=== PATIENT | male | born 1965 | race Caucasian/White ===

== ENCOUNTER → 2016-12-01 | Outpatient (CLI) | payer OTHER ==
[~2016-12-01] VITALS: Ht 180.3 cm; Wt 70.2 kg
[~2016-12-01] MED LIST: CYCLOBENZAPRINE10 MG PO; DELTASONE10 MG PO; EFFEXOR XR150 MG PO; ERYTHROMYCIN O3.5 GM LEFT EYE; FLEXERIL10 MG PO; KEFLEX500 MG PO; MOBIC15 MG PO; MOTRIN600 MG PO; MOTRIN800 MG PO; NAPROSYN500 MG PO; NAPROXEN500 MG PO; NOHOMEMEDS; PERCOCET 5/31 TABLET PO; PRILOSEC40 MG PO; PriLOSEC PO; ZANTAC150 MG PO; ZOFRAN ODT8 MG PO
== END | disposition home or self-care (01) ==
LOC: AMB 08:54
PROC: 0DB68ZX Excision of Stomach, Via Natural or Artificial Opening Endoscopic, Diagnostic (ICD-10-PCS; principal; 2016-12-01)
DX: K29.70 Gastritis, unspecified, without bleeding (principal); R10.13 Epigastric pain; R11.2 Nausea with vomiting, unspecified; R63.4 Abnormal weight loss; K21.9 Gastro-esophageal reflux disease without esophagitis; Z80.0 Family history of malignant neoplasm of digestive organs; F17.200 Nicotine dependence, unspecified, uncomplicated
CPT/HCPCS: 88305; 88342 TC; B4087; J2250

== ENCOUNTER → 2016-12-14 | Outpatient (CLI) | payer OTHER | END | disposition home or self-care (01) | LOC: NUC 07:14 | DX: R10.13 Epigastric pain (principal); R94.8 Abnormal results of function studies of other organs and systems | CPT/HCPCS: 78264; A9541 ==

== ENCOUNTER 2017-05-28 09:48 | Emergency (ER) | payer OTHER ==
[~2017-05-28] VITALS: Ht 180.3 cm; Wt 74.3 kg
[2017-05-28 11:45] LABS: HEMATOCRIT 44.9 % (38.0-50.0); MCH 30.2 PG (29.0-34.0); MCHC 35.4 G/DL (30.0-36.0); MCV 85.2 FL (86-99); MEAN PLAT.VOLUME 9.7 uM^3 (9.0-12.4); PLATELET COUNT 222 K/uL (156-360); RBC DIS.WIDTH-CV 12.5 % (11.8-14.6); RBC DIS.WIDTH-SD 38.8 % (39-53); RED BLOOD COUNT 5.27 M/uL (4.00-5.50); WHITE BLOOD COUNT 7.5 K/uL (4.1-10.2)
[2017-05-28 11:53] LABS: CHLORIDE 102 mEq/L (99-109); POTASSIUM 3.9 mEq/L (3.7-5.4); SODIUM 138 mEq/L (136-147)
[2017-05-28 11:55] LABS: GLUCOSE 106 mg/dL (70-99)
[2017-05-28 11:56] LABS: ANION GAP 13 MEQ/L (2-14)
[2017-05-28 11:57] LABS: TOTAL BILIRUBIN 0.7 mg/dL (0.0-1.0)
[2017-05-28 11:59] LABS: ADD MIUA? YES; ALKALINE PHOSPHATASE 54 IU/L (3-129); BILIRUBIN NEGATIVE; BLOOD SMALL; COLOR YELLOW ((YELLOW)); GFR ESTIMATE (CALCULATED) > 59 mL/min/; GLUCOSE (STRIP) NEGATIVE; KETONES NEGATIVE; LEUKOCYTES NEGATIVE; NITRITE NEGATIVE; PROTEIN (STRIP) NEGATIVE; SPECIFIC GRAVITY 1.005 (1.000-1.030); UROBILINOGEN 0.2 MG/DL (0.2-1.0)
[2017-05-28 12:00] LABS: UREA NITROGEN (BUN) 8 mg/dL (9-23)
[2017-05-28 12:04] LABS: BACTERIA NONE SEEN /HPF; EPITHELIAL CELLS RARE /HPF; MUCUS TRACE /LPF; RED BLOOD CELLS 0-5 /HPF (0-5); WHITE BLOOD CELLS 0-5 /HPF (0-5)
[2017-05-28] MEDS ORDERED: LIDODERM 5% P1 PATCH TD (14:15)
[2017-05-28] MEDS ORDERED: NORCO 5/3251 TABLET PO (14:15)
[2017-05-28 14:17] VITALS: BP 158/91
== END 2017-05-28 14:25 | disposition home or self-care (01) ==
LOC: EME 09:48
PROVIDERS: Nurse Practitioner Family
DX: M54.5 Low back pain (principal); R20.2 Paresthesia of skin; S40.029A Contusion of unspecified upper arm, initial encounter; R31.9 Hematuria, unspecified; W19.XXXA Unspecified fall, initial encounter; K21.9 Gastro-esophageal reflux disease without esophagitis; Z86.73 Personal history of transient ischemic attack (TIA), and cerebral infarction without residual deficits; F17.200 Nicotine dependence, unspecified, uncomplicated
CPT/HCPCS: 70450; 72100; 73080; 80053; 81003; 85027; 99281; 99284

== ENCOUNTER 2017-06-17 05:05 | Emergency (ER) | payer OTHER ==
[~2017-06-17] VITALS: Ht 180.3 cm; Wt 76.3 kg
[~2017-06-17 05:05] MED LIST changes: +LIDODERM 5% P1 PATCH TD; +NORCO 5/3251 TABLET PO
[2017-06-17 06:49] LABS: EOSINOPHIL (%) 2.5 % (0-5); EOSINOPHIL COUNT 0.1 K/uL (0-0.3); HEMATOCRIT 38.3 % (38.0-50.0); IMMATURE GRANULOCYTE (%) 0.4 % (0.0-0.7); INSTRUMENT ABS NEUTROPHIL CT 3.2 K/uL; LYMPHOCYTE COUNT 1.4 K/uL (1.0-2.8); MCH 29.8 PG (29.0-34.0); MCHC 35.2 G/DL (30.0-36.0); MCV 84.5 FL (86-99); MEAN PLAT.VOLUME 10.1 uM^3 (9.0-12.4); MONOCYTE (%) 8.3 % (3-12); MONOCYTE COUNT 0.4 K/uL (0-0.8); NEUTROPHIL (%) 61.5 % (45-76); NEUTROPHIL COUNT 3.2 K/uL (1.8-6.4); PLATELET COUNT 198 K/uL (156-360); RBC DIS.WIDTH-CV 12.1 % (11.8-14.6); RBC DIS.WIDTH-SD 37.1 % (39-53); RED BLOOD COUNT 4.53 M/uL (4.00-5.50); WHITE BLOOD COUNT 5.2 K/uL (4.1-10.2)
[2017-06-17 06:53] LABS: INTER. NORMALIZED RATIO 0.9; PROTHROMBIN TIME 10.2 SEC (10.2-12.9)
[2017-06-17 06:56] LABS: PTT 29.9 SEC (25-37)
[2017-06-17 07:16] LABS: ANION GAP 10 MEQ/L (2-14); CHLORIDE 101 MEQ/L (99-109); CREATINE KINASE 90 IU/L (1-294); GFR ESTIMATE (CALCULATED) > 59 mL/min/; GLUCOSE 85 mg/dL (70-99); SAMPLE HEMOLYSIS CHECK 0; SAMPLE ICTERIC CHECK 0; SAMPLE LIPEMIA CHECK 0; SODIUM 137 MEQ/L (136-147); TOTAL CK 90 IU/L (1-294); UREA NITROGEN (BUN) 8 mg/dL (9-23)
[2017-06-17 07:43] LABS: CK-MB 1.3 ng/mL (0.0-4.9)
[2017-06-17] MEDS ORDERED: PERCOCET 5/31 TABLET PO (10:04)
[2017-06-17] MEDS ORDERED: VALIUM2 MG PO (10:04)
[2017-06-17 10:33] VITALS: BP 130/88
== END 2017-06-17 10:50 | disposition home or self-care (01) ==
LOC: EME → EDBD 05:05 → EME 10:50
PROVIDERS: Emergency Medicine
DX: M79.604 Pain in right leg (principal); R20.2 Paresthesia of skin; G20 Parkinson's disease; Z87.891 Personal history of nicotine dependence
CPT/HCPCS: 73564; 73590; 80048; 82550; 82553; 85025; 85610; 85730; 93971; 99281; 99285; J1100; J1885; J3010; J3360

== ENCOUNTER → 2017-06-20 | Outpatient (CLI) | payer OTHER ==
[~2017-06-20] MED LIST changes: +VALIUM2 MG PO
== END | disposition home or self-care (01) ==
LOC: NUC 08:53
DX: R25.1 Tremor, unspecified (principal); R13.10 Dysphagia, unspecified; R20.0 Anesthesia of skin; R25.9 Unspecified abnormal involuntary movements; R53.1 Weakness
CPT/HCPCS: 78607; A9584

== ENCOUNTER → 2017-07-16 | Outpatient (CLI) | payer OTHER ==
[2017-07-16 16:26] LABS: APPEARANCE CLEAR/COLORLESS; CSF EOSINOPHILS 0 % (0-25); MONONUCLEAR WBC'S 100 % (50-90); POLYNUCLEAR WBC'S 0 % (0-3); RED CELL AREA COUNTED 18; RED CELL COUNT 1 /MM^3 (0-1); RED CELL DILUTION 1; WBC AREA COUNTED 18; WBC DILUTION 1; WHITE CELL COUNT 1 /MM^3 (0-5); WHITE CELL RAW COUNT 2
[2017-07-17 19:14] LABS: Albumin, Serum 4.9 g/dL (3.5-4.9); IgG Index, CSF 0.41 index (<0.66)
== END | disposition home or self-care (01) ==
LOC: RAD 14:42
PROVIDERS: Psychiatry & Neurology Clinical Neurophysiology
PROC: 009U3ZZ Drainage of Spinal Canal, Percutaneous Approach (ICD-10-PCS; principal; 2017-07-16)
DX: R26.9 Unspecified abnormalities of gait and mobility (principal); R25.1 Tremor, unspecified
CPT/HCPCS: 62270; 77003; 82945; 83873 90; 83916 90; 84157; 86617 90; 86618 90; 87070; 87205; 89051

== ENCOUNTER → 2017-07-19 | Outpatient (CLI) | payer OTHER ==
[~2017-07-19] MED LIST changes: +AFRIN,GENASAL D15 ML BOTH NARES; +HYCODAN SYRUP480 ML PO; +PREDNISONE20 MG PO; +ZITHROMAX Z-PA250 MG PO
== END | disposition home or self-care (01) ==
LOC: RAD 11:30 → EDSTATUS 11:30 → RAD 11:40
PROC: 3E0S3GC Introduction of Other Therapeutic Substance into Epidural Space, Percutaneous Approach (ICD-10-PCS; principal; 2017-07-19)
DX: G97.1 Other reaction to spinal and lumbar puncture (principal)
CPT/HCPCS: C1755

== ENCOUNTER 2017-07-24 10:14 | Emergency (ER) | payer OTHER ==
[~2017-07-24] VITALS: Ht 180.3 cm; Wt 82.3 kg
[~2017-07-24 10:14] MED LIST changes: -AFRIN,GENASAL D15 ML BOTH NARES; -HYCODAN SYRUP480 ML PO; +OMEPRAZOLE40 M1 PO; -PREDNISONE20 MG PO; -PRILOSEC40 MG PO; -ZITHROMAX Z-PA250 MG PO
[2017-07-24 11:02] LABS: HEMATOCRIT 40.4 % (38.0-50.0); MCH 29.9 PG (29.0-34.0); MCHC 34.9 G/DL (30.0-36.0); MCV 85.6 FL (86-99); MEAN PLAT.VOLUME 9.8 uM^3 (9.0-12.4); PLATELET COUNT 170 K/uL (156-360); RBC DIS.WIDTH-CV 12.3 % (11.8-14.6); RBC DIS.WIDTH-SD 38.3 % (39-53); RED BLOOD COUNT 4.72 M/uL (4.00-5.50); WHITE BLOOD COUNT 7.6 K/uL (4.1-10.2)
[2017-07-24 11:43] LABS: CHLORIDE 105 mEq/L (99-109); POTASSIUM 3.9 mEq/L (3.7-5.4); SODIUM 141 mEq/L (136-147)
[2017-07-24 11:45] LABS: GLUCOSE 96 mg/dL (70-99)
[2017-07-24 11:47] LABS: ANION GAP 13 MEQ/L (2-14)
[2017-07-24 11:49] LABS: GFR ESTIMATE (CALCULATED) > 59 mL/min/
[2017-07-24 11:50] LABS: UREA NITROGEN (BUN) 6 mg/dL (9-23)
[2017-07-24 12:09] LABS: D-DIMER ELISA < 150.00 ng/mLDDU (<230)
[2017-07-24 12:20] LABS: TROP-I INTERPRETATION NEGATIVE; TROPONIN-I < 0.01 ng/mL (0.0-0.30)
[2017-07-24] MEDS ORDERED: NAPROSYN500 MG PO (12:39)
[2017-07-24] MEDS ORDERED: AFRIN,GENASAL D15 ML BOTH NARES (12:39)
[2017-07-24] MEDS ORDERED: ZITHROMAX Z-PA250 MG PO (12:39)
[2017-07-24] MEDS ORDERED: PREDNISONE20 MG PO (12:39)
[2017-07-24] MEDS ORDERED: HYCODAN SYRUP480 ML PO (12:39)
[2017-07-24 12:55] VITALS: BP 124/86
== END 2017-07-24 12:57 | disposition home or self-care (01) ==
LOC: EME 10:14
PROVIDERS: Physician Assistant
DX: R09.1 Pleurisy (principal); G35 Multiple sclerosis; G89.29 Other chronic pain; Z87.891 Personal history of nicotine dependence
CPT/HCPCS: 71020; 80048; 84484; 85027; 85379; 93005; 94640; 99281; 99283; J1885; J3010; J7512

== ENCOUNTER 2017-07-28 08:04 | Observation (INO) | payer OTHER ==
[~2017-07-28] VITALS: Ht 180.3 cm; Wt 82.7 kg
[~2017-07-28 08:04] MED LIST changes: +AFRIN,GENASAL D15 ML BOTH NARES; +HYCODAN SYRUP480 ML PO; +PREDNISONE20 MG PO; +ZITHROMAX Z-PA250 MG PO
[2017-07-28 09:04] LABS: HEMATOCRIT 38.7 % (38.0-50.0); MCH 29.8 PG (29.0-34.0); MCHC 35.4 G/DL (30.0-36.0); MCV 84.3 FL (86-99); MEAN PLAT.VOLUME 9.7 uM^3 (9.0-12.4); PLATELET COUNT 207 K/uL (156-360); RBC DIS.WIDTH-CV 12.7 % (11.8-14.6); RBC DIS.WIDTH-SD 38.6 % (39-53); RED BLOOD COUNT 4.59 M/uL (4.00-5.50); WHITE BLOOD COUNT 9.9 K/uL (4.1-10.2)
[2017-07-28 09:12] LABS: CHLORIDE 104 mEq/L (99-109); POTASSIUM 3.5 mEq/L (3.7-5.4); SODIUM 141 mEq/L (136-147)
[2017-07-28 09:14] LABS: GLUCOSE 81 mg/dL (70-99)
[2017-07-28 09:16] LABS: ANION GAP 15 MEQ/L (2-14); TOTAL BILIRUBIN 0.3 mg/dL (0.0-1.0)
[2017-07-28 09:18] LABS: ALKALINE PHOSPHATASE 64 IU/L (3-129); GFR ESTIMATE (CALCULATED) > 59 mL/min/
[2017-07-28 09:19] LABS: UREA NITROGEN (BUN) 8 mg/dL (9-23)
[2017-07-28 10:09] LABS: ADD MIUA? NO; BILIRUBIN NEGATIVE; BLOOD NEGATIVE; COLOR STRAW ((YELLOW)); GLUCOSE (STRIP) NEGATIVE; KETONES NEGATIVE; LEUKOCYTES NEGATIVE; NITRITE NEGATIVE; PROTEIN (STRIP) NEGATIVE; SPECIFIC GRAVITY 1.004 (1.000-1.030); UROBILINOGEN 0.2 MG/DL (0.2-1.0)
[2017-07-28 12:09] LABS: UCUL ADDED? NO
[2017-07-28] MEDS ORDERED: NAPROXEN500 MG PO (13:16)
[2017-07-28] MEDS ORDERED: MOBIC15 MG PO (13:17)
[2017-07-28] MEDS ORDERED: BACLOFEN20 MG PO (13:21)
[2017-07-28] MEDS ORDERED: AMLODIPINE BES2.5 MG PO (13:22)
[2017-07-28] MEDS ORDERED: NICODERM CQ1 EACH TD (13:22)
[2017-07-28] MEDS ORDERED: GABAPENTIN300 MG PO (13:23)
[2017-07-28] MEDS ORDERED: CLARITIN10 MG PO (13:23)
[2017-07-28 14:40] VITALS: BP 141/81
[2017-07-28 18:30] VITALS: BP 141/85
[2017-07-29 04:30] VITALS: BP 153/82
[2017-07-29 05:38] LABS: HEMATOCRIT 36.6 % (38.0-50.0); MCH 29.9 PG (29.0-34.0); MCHC 34.7 G/DL (30.0-36.0); MCV 86.1 FL (86-99); MEAN PLAT.VOLUME 9.8 uM^3 (9.0-12.4); PLATELET COUNT 199 K/uL (156-360); RBC DIS.WIDTH-CV 12.7 % (11.8-14.6); RBC DIS.WIDTH-SD 39.6 % (39-53); RED BLOOD COUNT 4.25 M/uL (4.00-5.50)
[2017-07-29 05:54] LABS: ANION GAP 14 MEQ/L (2-14); CHLORIDE 102 MEQ/L (99-109); GFR ESTIMATE (CALCULATED) > 59 mL/min/; SAMPLE HEMOLYSIS CHECK 0; SAMPLE ICTERIC CHECK 0; SAMPLE LIPEMIA CHECK 0; SODIUM 142 MEQ/L (136-147); UREA NITROGEN (BUN) 12 mg/dL (9-23)
[2017-07-29 06:01] LABS: GLUCOSE 116 mg/dL (70-99); POTASSIUM 4.4 MEQ/L (3.7-5.4)
[2017-07-29 09:31] VITALS: BP 131/81
[2017-07-29 12:00] VITALS: BP 131/71
== END 2017-07-29 17:16 | disposition home or self-care (01) ==
LOC: EME 08:04 → EDOF 13:05 → ENRESERV 13:23 → EDOF 13:39 → ENRESERV 13:45 → 5WEST 14:26
PROVIDERS: Nurse Practitioner Family; Physician Assistant
DX: M54.5 Low back pain (principal); R20.2 Paresthesia of skin; M79.7 Fibromyalgia; J44.1 Chronic obstructive pulmonary disease with (acute) exacerbation; F44.7 Conversion disorder with mixed symptom presentation; E87.6 Hypokalemia; F17.200 Nicotine dependence, unspecified, uncomplicated; G89.29 Other chronic pain; G43.909 Migraine, unspecified, not intractable, without status migrainosus; K22.70 Barrett's esophagus without dysplasia; I73.00 Raynaud's syndrome without gangrene; R25.1 Tremor, unspecified; M51.36 Other intervertebral disc degeneration, lumbar region; Z86.73 Personal history of transient ischemic attack (TIA), and cerebral infarction without residual deficits; Z86.72 Personal history of thrombophlebitis; R29.6 Repeated falls; Z79.52 Long term (current) use of systemic steroids; Z82.3 Family history of stroke; Z82.49 Family history of ischemic heart disease and other diseases of the circulatory system
CPT/HCPCS: 71250; 72148; 80048; 80053; 81003; 85027; 94640; 99281; 99285; G0378; G8978 GP CJ; G8979 GP CI; G8980 CJ; J1650; J2270; J2405; J7030; J7512

== ENCOUNTER 2017-08-09 10:57 | Emergency (ER) | payer OTHER ==
[~2017-08-09] VITALS: Ht 180.3 cm; Wt 83.6 kg
[~2017-08-09 10:57] MED LIST changes: +AMLODIPINE BES2.5 MG PO; +BACLOFEN20 MG PO; +CLARITIN10 MG PO; +GABAPENTIN300 MG PO; +NICODERM CQ1 EACH TD
[2017-08-09 15:50] VITALS: BP 173/117
== END 2017-08-09 15:50 | disposition home or self-care (01) ==
LOC: EME 10:57
DX: M79.604 Pain in right leg (principal); M79.89 Other specified soft tissue disorders; G35 Multiple sclerosis; W01.198A Fall on same level from slipping, tripping and stumbling with subsequent striking against other object, initial encounter; Z87.891 Personal history of nicotine dependence
CPT/HCPCS: 93971; 99281; 99284

== ENCOUNTER 2017-10-26 17:03 | Emergency (ER) | payer OTHER ==
[~2017-10-26] VITALS: Ht 180.3 cm; Wt 88.1 kg
[2017-10-26] MEDS ORDERED: INDOCIN50 MG PO (20:23)
[2017-10-26] MEDS ORDERED: NORCO 5/3251 TABLET PO (20:23)
[2017-10-26 20:38] VITALS: BP 109/98
== END 2017-10-26 20:39 | disposition home or self-care (01) ==
LOC: EME 17:03
DX: S83.91XA Sprain of unspecified site of right knee, initial encounter (principal); W18.30XA Fall on same level, unspecified, initial encounter; Y93.89 Activity, other specified
CPT/HCPCS: 73564; 99281; 99284

== ENCOUNTER → 2017-12-24 | Outpatient (CLI) | payer OTHER ==
[~2017-12-24] VITALS: Ht 180.3 cm; Wt 95.2 kg
[~2017-12-24] MED LIST changes: +EFFEXOR37.5 MG PO; +INDOCIN50 MG PO; +NEURONTIN600 MG PO
== END | disposition home or self-care (01) ==
LOC: AMB 12:01
PROC: 0DJD8ZZ Inspection of Lower Intestinal Tract, Via Natural or Artificial Opening Endoscopic (ICD-10-PCS; principal; 2017-12-24)
DX: R19.4 Change in bowel habit (principal); K62.5 Hemorrhage of anus and rectum; K64.8 Other hemorrhoids; K57.30 Diverticulosis of large intestine without perforation or abscess without bleeding; K21.9 Gastro-esophageal reflux disease without esophagitis; K22.70 Barrett's esophagus without dysplasia; Z87.19 Personal history of other diseases of the digestive system; Z90.49 Acquired absence of other specified parts of digestive tract; Z80.0 Family history of malignant neoplasm of digestive organs; F17.200 Nicotine dependence, unspecified, uncomplicated
CPT/HCPCS: J2250

== ENCOUNTER → 2018-03-25 | Outpatient (CLI) | payer OTHER | END | disposition home or self-care (01) | LOC: CDC 09:56 | DX: Z01.810 Encounter for preprocedural cardiovascular examination (principal); M72.0 Palmar fascial fibromatosis [Dupuytren]; M79.642 Pain in left hand | CPT/HCPCS: 93000 ==

== ENCOUNTER 2018-03-30 10:50 | Emergency (ER) | payer OTHER ==
[~2018-03-30] VITALS: Ht 180.3 cm; Wt 94.3 kg
[2018-03-30 11:12] VITALS: BP 133/95
== END 2018-03-30 11:34 | disposition left against medical advice (07) ==
LOC: EME 10:50
DX: M43.6 Torticollis (principal); R51 Headache; Z53.21 Procedure and treatment not carried out due to patient leaving prior to being seen by health care provider
CPT/HCPCS: 99281; 99283

== ENCOUNTER 2018-04-04 14:41 | Emergency (ER) | payer OTHER ==
[~2018-04-04] VITALS: Ht 180.3 cm; Wt 96.2 kg
[2018-04-04 15:56] LABS: BASOPHIL (%) 0.9 % (0-1); BASOPHIL COUNT 0.1 K/uL (0-0.1); EOSINOPHIL COUNT 0.3 K/uL (0-0.3); HEMOGLOBIN 12.9 G/DL (12.5-16.6); IMMATURE GRANULOCYTE (%) 0.4 % (0.0-0.7); LYMPHOCYTE (%) 16.9 % (15-42); LYMPHOCYTE COUNT 1.4 K/uL (1.0-2.8); MCH 29.5 PG (29.0-34.0); MCHC 34.9 G/DL (30.0-36.0); MCV 84.7 FL (86-99); MONOCYTE (%) 6.8 % (3-12); MONOCYTE COUNT 0.6 K/uL (0-0.8); NEUTROPHIL COUNT 5.7 K/uL (1.8-6.4); PLATELET COUNT 245 K/uL (156-360); RBC DIS.WIDTH-CV 13.1 % (11.8-14.6); RED BLOOD COUNT 4.37 M/uL (4.00-5.50); WHITE BLOOD COUNT 8.1 K/uL (4.1-10.2)
[2018-04-04 16:11] LABS: CHLORIDE 103 mEq/L (99-109); POTASSIUM 3.6 mEq/L (3.7-5.4); SODIUM 140 mEq/L (136-147)
[2018-04-04 16:12] LABS: GLUCOSE 98 mg/dL (70-99)
[2018-04-04 16:16] LABS: CREATININE 0.8 mg/dL (0.6-1.3); GFR ESTIMATE (CALCULATED) > 59 mL/min/ (58.99-99999)
[2018-04-04 16:17] LABS: UREA NITROGEN (BUN) 9 mg/dL (9-23)
[2018-04-04] MEDS ORDERED: VALIUM5 MG PO (16:19)
[2018-04-04 16:52] VITALS: BP 129/66
== END 2018-04-04 16:52 | disposition home or self-care (01) ==
LOC: EME 14:41
PROVIDERS: Physician Assistant
DX: R51 Headache (principal); M54.2 Cervicalgia; H53.8 Other visual disturbances; Z87.891 Personal history of nicotine dependence
CPT/HCPCS: 70450; 80048; 85025; 99281; 99284; J1885